=== PATIENT | female | born 1990 | race Caucasian/White ===

== ENCOUNTER 2017-11-09 14:59 | Outpatient (CLI) | payer MEDICAID ==
[2017-11-09 16:11] LABS: APPEARANCE,URINE SLIGHTLY-CLOUDY; BILIRUBIN,URINE SMALL (NEGATIVE); COLOR,URINE AMBER; GLUCOSE, URINE NEGATIVE (NEGATIVE); KETONES,URINE NEGATIVE (NEGATIVE); LEUKOCYTE ESTERASE,URINE NEGATIVE (NEGATIVE); NITRITE,URINE NEGATIVE (NEGATIVE); PROTEIN,URINE 30 mg/dL (NEGATIVE); URINE SPECIFIC GRAVITY 1.024
[2017-11-09 16:14] LABS: URINE AMPHETAMINES SCREEN NEGATIVE; URINE BARBITURATES SCREEN NEGATIVE; URINE BENZODIAZEPINES SCREEN NEGATIVE; URINE COCAINE SCREEN NEGATIVE; URINE MARIJUANA (THC) SCREEN NEGATIVE; URINE METHADONE SCREEN NEGATIVE; URINE PHENCYCLIDINE SCREEN NEGATIVE
== END 2017-11-09 17:13 | disposition home or self-care (01) ==
LOC: LC 14:59
PROVIDERS: ATTEND Student in an Organized Health Care Education/Training Program
PROC: 4A1HXCZ Monitoring of Products of Conception, Cardiac Rate, External Approach (ICD-10-PCS; principal; 2017-11-09)
DX: Z34.93 Encounter for supervision of normal pregnancy, unspecified, third trimester (principal); Z36.89 Encounter for other specified antenatal screening; Z3A.34 34 weeks gestation of pregnancy
CPT/HCPCS: 59025; 80307; 81001

== ENCOUNTER 2017-11-26 19:30 | Outpatient (CLI) | payer MEDICAID ==
[2017-11-26 20:13] LABS: APPEARANCE,URINE SLIGHTLY-CLOUDY; BILIRUBIN,URINE NEGATIVE (NEGATIVE); COLOR,URINE YELLOW; GLUCOSE, URINE NEGATIVE (NEGATIVE); KETONES,URINE NEGATIVE (NEGATIVE); LEUKOCYTE ESTERASE,URINE MODERATE (NEGATIVE); NITRITE,URINE NEGATIVE (NEGATIVE); PROTEIN,URINE NEGATIVE (NEGATIVE); URINE SPECIFIC GRAVITY 1.012; UROBILINOGEN,URINE NEGATIVE mg/dL (<2.0)
[2017-11-26 20:29] LABS: URINE AMPHETAMINES SCREEN NEGATIVE; URINE BARBITURATES SCREEN NEGATIVE; URINE BENZODIAZEPINES SCREEN NEGATIVE; URINE COCAINE SCREEN NEGATIVE; URINE MARIJUANA (THC) SCREEN NEGATIVE; URINE METHADONE SCREEN NEGATIVE; URINE PHENCYCLIDINE SCREEN NEGATIVE
== END 2017-11-26 21:13 | disposition home or self-care (01) ==
LOC: LC 19:30
PROVIDERS: ATTEND Obstetrics & Gynecology Gynecology
PROC: 4A1HXCZ Monitoring of Products of Conception, Cardiac Rate, External Approach (ICD-10-PCS; principal; 2017-11-26)
DX: O26.893 Other specified pregnancy related conditions, third trimester (principal); R10.9 Unspecified abdominal pain; Z3A.37 37 weeks gestation of pregnancy
CPT/HCPCS: 59025; 80307; 81005

== ENCOUNTER 2017-12-10 05:03 | Inpatient (IN) | payer MEDICAID ==
[2017-12-09 12:23] LABS: ABSOLUTE EOSINOPHILS # (AUTO) 0.2 10^3/uL (0.0-0.6); ABSOLUTE MONOCYTES (AUTO) 0.4 10^3/uL (0.1-1.4); ABSOLUTE NEUT (AUTO) 8.5 10^3/uL (1.7-8.2); BASOPHILS % (AUTO) 0.4 % (0-2); EOSINOPHILS % (AUTO) 1.4 % (0-6); HEMATOCRIT 33.8 % (36.0-47.0); HEMOGLOBIN 10.9 g/dL (12.0-15.5); LYMPHOCYTES % (AUTO) 18.1 % (13-45); MEAN CORPUSCULAR HEMOGLOBIN 25.4 pg (27.0-33.4); MEAN CORPUSCULAR HGB CONC 32.3 g/dL (32.0-36.0); MEAN CORPUSCULAR VOLUME 79 fl (80-97); MONOCYTES % (AUTO) 3.7 % (3-13); PLATELET COUNT 301 10^3/uL (150-450); RED CELL DISTRIBUTION WIDTH 17.8 % (11.5-14.0); SEGMENTED NEUTROPHILS % (AUTO) 76.4 % (42-78); TOTAL CELLS COUNTED % (AUTO) 100 %; WHITE BLOOD COUNT 11.1 10^3/uL (4.0-10.5)
[2017-12-09 12:26] LABS: APPEARANCE,URINE CLOUDY; BILIRUBIN,URINE NEGATIVE (NEGATIVE); COLOR,URINE YELLOW; GLUCOSE, URINE NEGATIVE (NEGATIVE); KETONES,URINE NEGATIVE (NEGATIVE); LEUKOCYTE ESTERASE,URINE LARGE (NEGATIVE); NITRITE,URINE NEGATIVE (NEGATIVE); PROTEIN,URINE 30 mg/dL (NEGATIVE); URIC ACID CRYSTALS,URINE FEW /HPF; URINE SPECIFIC GRAVITY 1.029
[2017-12-09 12:53] LABS: URINE AMPHETAMINES SCREEN NEGATIVE; URINE BARBITURATES SCREEN NEGATIVE; URINE BENZODIAZEPINES SCREEN NEGATIVE; URINE COCAINE SCREEN NEGATIVE; URINE MARIJUANA (THC) SCREEN NEGATIVE; URINE METHADONE SCREEN NEGATIVE; URINE PHENCYCLIDINE SCREEN NEGATIVE
[~2017-12-10 05:03] MED LIST: CEFAZOLIN 2 GM/D5W RTU 2 GM/50 ML RTUPB IV PRN; LACTATED RINGERS 1000 ML IV PRN; LIDOCAINE 0.5% INJ-PF (5 MG/ML) 50 ML SDV SUBCUT PRN; RINGERS SOLUTION,LACTATED 1,000 ML IV ONE
[2017-12-10] MEDS ORDERED: OXYTOCIN 10 UNIT/ML VIAL ONE (06:46)
[2017-12-10] MEDS ORDERED: MIDAZOLAM 2 MG/2 ML INJ ONE (06:47)
[2017-12-10] MEDS ORDERED: FENTANYL CITRATE INJ/PF 100 MCG/2 ML AMPUL ONE (06:47)
[2017-12-10] MEDS ORDERED: EPINEPHRINE INJ/PF 1 MG/1 ML AMPULE ONE (06:47)
[2017-12-10] MEDS ORDERED: EPHEDRINE SULFATE INJ 50 MG/1 ML AMPULE ONE (06:47)
[2017-12-10] MEDS ORDERED: ONDANSETRON HCL INJ/PF 4 MG/2 ML SDV ONE ×2 (06:48→09:21)
[2017-12-10] MEDS ORDERED: OXYTOCIN/NORMAL SALINE 20 UNIT/1,000 ML RTUINJ ONE ×2 (06:48→09:36)
[2017-12-10] MEDS ORDERED: NALBUPHINE HCL INJ 10 MG/1 ML AMPULE ONE (08:06)
[2017-12-10] MEDS ORDERED: ONDANSETRON HCL INJ/PF 4 MG/2 ML SDV IV PRN (08:21)
[2017-12-10] MEDS ORDERED: DIPHENHYDRAMINE HCL 50 MG/ML VIAL IV PRN (08:21)
[2017-12-10] MEDS ORDERED: PROMETHAZINE HCL INJ 25 MG/1 ML VIAL IV PRN ×2 (08:21→09:20)
[2017-12-10] MEDS ORDERED: MEPERIDINE HCL/PF INJ 25 MG/1 ML DISP.SYRIN IV PRN (08:21)
[2017-12-10] MEDS ORDERED: MORPHINE SULFATE 10 MG/ML INJ IV PRN (08:21)
[2017-12-10] MEDS ORDERED: FENTANYL CITRATE INJ/PF 100 MCG/2 ML AMPUL IV PRN ×3 (08:21)
--- NOTE | 2017-12-10 09:03 | Non Stress Test Report ---
Non Stress Test Datetime Report Generated by CPN: 12/10/2017 09:03 DEMOGRAPHIC Test Number: 2 EGA NST: 37.0 EGA NST: 34.4 INDICATION Indication for Study: Ordered by Provider Indication for Study: Ordered by Provider MONITORING Monitor Explained: Monitor Explained; Test Explained; Patient Verbalized Understanding Monitor Explained: Monitor Explained; Test Explained; Patient Verbalized Understanding Time on Monitor: 11/26/2017 19:43 Time on Monitor: 11/09/2017 15:21 Time off Monitor: 11/26/2017 21:02 Time off Monitor: 11/09/2017 16:01 NST Duration: 79 NST Duration: 40 NST INTERVENTIONS NST Interventions: PO Hydration; Reposition Patient NST Interventions: PO Hydration; Reposition Patient Physician Notified NST: Dr. Metcalf Physician Notified NST: Dr. Woods BABY A: [id number] BABY A Movement : Present Movement : Present Contraction Frequency : irregular Contraction Frequency : 0 FHR Baseline : 145 FHR Baseline : 145 Accelerations : 15X15 Accelerations : 15X15 Decelerations : None Decelerations : None Variability : Moderate 6-25bpm Variability : Moderate 6-25bpm NST Review: Meets Criteria for Reactive NST NST Review: Meets Criteria for Reactive NST NST Review and Verified By : Casey Baldwin RN NST Review and Verified By : Aiyana Mc RN NST Results: Reactive NST Results: Reactive NST REPORT Report Trigger: Send Report
--- NOTE | 2017-12-10 09:07 | PDOC DELIVERY SUMMARY ---
Delivery Summary - Maternal Hx : II Hx Para: I Hx # Term Pregnancies: 1 Hx # Pregnancies: 0 Hx Total # of Abortions (Sponateous & Elective): 0 Number of Living Children: 1 ANN-MARIE: 12/17/17 Gestational Age: 39 Risk Factors: Previous Ruptured Membranes: AROM Time of Rupture: 08:04 Fluids: Clear - Delivery Labor: Not In Labor Presentation: Vertex Heart Rate Monitoring: Done Pre-Operatively Uterine Contraction Monitoring: External Support Person Present: Reza - CARMELINA SAMSON Location: OR : Scheduled Placenta: Within Normal Limits Number of Vessels (Cord): 3 Nuchal Cord: No Delivery of Placenta Date: 12/10/17 Delivery of Placenta Time: 08:06 - Medications Type of Anesthesia:: Spinal - Infant Assess and Care Baby 1 Male Delivery of Infant Date: 12/10/17 Delivery of Time: 08:04 at 1 minute: 8 at 5 minutes: 9 Preprinted Number On Band: [id number] Skin to Skin: No To Nursery At: 08:12 Mode of Transport: Bassinet Infant Delivery Weight: 3,645 Delivery Length: 20 in - Delivery Personnel Environmental Field Professional: SHAHRAM MILLER Nurseshabbir RN: MANAS PAIGE MD: JOSE GUTIÉRREZ
[2017-12-10] MEDS ORDERED: SIMETHICONE 80 MG TAB.CHEW PO PRN (09:20)
[2017-12-10] MEDS ORDERED: MEASLES,MUMPS&RUBELLA VACC/PF 0.5 ML VIAL SUBCUT PRN (09:20)
[2017-12-10] MEDS ORDERED: HYDROMORPHONE HCL INJ/PF 2 MG/ML AMPULE IV PRN (09:20)
[2017-12-10] MEDS ORDERED: OXYTOCIN/NORMAL SALINE 20 UNIT/1,000 ML RTUINJ IV PRN (09:20)
[2017-12-10] MEDS ORDERED: DIPH/PERTUSS(ACELL)/TETANUS VAC/PF 0.5 ML SYR (>=10YO) IM PRN (09:20)
[2017-12-10] MEDS ORDERED: ACETAMINOPHEN 325 MG TABLET PO PRN (09:20)
[2017-12-10] MEDS ORDERED: ACETAMINOPHEN 100 ML IV PRN (09:20)
--- NOTE | 2017-12-10 09:20 | Brief Operative Note ---
BRIEF OPERATIVE REPORT DATE OF SURGERY: 12/10/17 TIME OF SURGERY: 09:00 PREOPERATIVE DIAGNOSIS: History of C/S, 39+0, Desires Repeat C/S POSTOPERATIVE DIAGNOSIS: EFREN - Delivered SURGEON: JOSE GUTIÉRREZ FINDINGS: normal uterus except for very thin uterine segment, no uterine window , bilateral tubes and ovaries normal, VMI delivered 0804, weight 8#1oz, Apgars 8 /9. UOP 125ml, IVF 1600ml COMPLICATIONS: None ESTIMATED BLOOD LOSS: 700ml TISSUE REMOVED OR ALTERED: placenta and cord - not sent for pathology TECHNICAL PROCEDURE: Scar Revision, Repeat section
[2017-12-10] MEDS ORDERED: ACETAMINOPHEN WITH CODEINE #3 TABLET PO PRN (09:23)
[2017-12-10] MEDS ORDERED: ACETAMINOPHEN 100 ML IV ONE (09:55)
[2017-12-10] MEDS ORDERED: KETOROLAC TROMETHAMINE INJ/PF 30 MG/1 ML SDV ONE (09:55)
[2017-12-10] MEDS: KETOROLAC TROMETHAMINE INJ/PF 30 MG/1 ML SDV IV SCH ×2 (10:03→18:43)
[2017-12-10] MEDS: PRENATAL VITAMIN W DHA CAPSULE PO SCH (10:05)
[2017-12-10] MEDS: DOCUSATE SODIUM 100 MG CAPSULE PO SCH ×2 (10:05→18:44)
[2017-12-10] MEDS: ACETAMINOPHEN WITH CODEINE #3 TABLET PO PRN ×3 (12:43→23:02)
--- NOTE | 2017-12-10 19:15 | Operative Report ---
Operative Report DATE OF SURGERY: 12/10/17 PREOPERATIVE DIAGNOSIS: History of C/S, 39+0, Desires Repeat C/S POSTOPERATIVE DIAGNOSIS: EFREN - Delivered OPERATION: Scar Revision, Repeat section SURGEON: JOSE GUTIÉRREZ ANESTHESIA: Spinal TISSUE REMOVED OR ALTERED: placenta and cord - not sent for pathology COMPLICATIONS: None ESTIMATED BLOOD LOSS: 700ml INTRAOPERATIVE FINDINGS: normal uterus except for very thin uterine segment, no uterine window, bilateral tubes and ovaries normal, VMI delivered 0804, weight 8 #1oz, Apgars 8/9. UOP 125ml, IVF 1600ml PROCEDURE: Anesthesia provider: [Wyatt] Estimated blood loss: [700ml] Urine output: [125ml] IV fluids: [1600ml] Indications: [27yo at 39+0ega presents for scheduled repeat section. She has a prior history of section and declines . She desires RELTCS. She does not desire contraception and desires to use condoms only. The risks, benefits, alternatives were reviewed with the patient and she desires to proceed with the planned procedure.] Procedure: The patient was taken to the operating room where spinal anesthesia was obtained and found to be adequate. She was then prepped and draped in the normal sterile fashion and placed in the dorsal supine position with a leftward tilt. A Pfannenstiel skin incision was then made and carried through to the underlying layers of the fascia with the scalpel. The fascia was incised in the midline and the incision extended laterally with the Salas scissors. The superior aspect of the fascial incision was then grasped with Dylon clamps elevated and the underlying rectus muscles dissected off [bluntly]. Attention was then turned to the inferior aspect of the fascial incision which in a similar fashion was grasped, tented up with Alma clamps, and the rectus muscles dissected off [bluntly]. The rectus muscles were then in the midline and the peritoneum at the amount identified and entered [bluntly]. The peritoneal incision was then extended superiorly and inferiorly with good visualization of the bladder. The bladder blade was inserted and the vesicouterine peritoneum identified grasped with Japanese pickups and entered sharply with the Metzenbaum scissors. This incision was then extended laterally with the Metzenbaum scissors and a bladder flap created digitally. The bladder blade was then reinserted and the lower uterine segment incised in a transverse fashion with the scalpel. The uterine incision was then extended bluntly. The bladder blade was removed and the infant's head was delivered from cephalic presentation atraumatically. The nose and mouth were suctioned and the cord doubly clamped and cut. And the infant was handed off to waiting pediatricians. The placenta was then delivered spontaneously and the uterus exteriorized and cleared of all clots and debris. The uterine incision was then repaired with 1- 0 Vicryl in a running locked fashion. A second layer of the same suture was used to obtain hemostasis via imbrication of the initial layer. The bladder flap was then repaired with 3-0 chromic in a running fashion. The uterus was returned to the patient's abdomen and Interceed was placed overlying the uterine incision to prevent adhesions. The gutters were cleared of all clots and debris. All operative sites were noted to be hemostatic. The fascia was reapproximated with 0 Vicryl in a running fashion from each lateral edge to the midline. The skin was closed with 3-0 Monocryl in a running subcuticular fashion with overlying Dermabond for additional dressing as well as wound closure. The patient tolerated the procedure well. Sponge lap needle and instrument counts are correct times two. 2 g of Ancef were given prior to skin incision. The patient was taken to the recovery area awake and in stable condition.
[2017-12-11] MEDS: KETOROLAC TROMETHAMINE INJ/PF 30 MG/1 ML SDV IV SCH (01:56)
[2017-12-11] MEDS: IBUPROFEN 800 MG TABLET PO SCH ×2 (05:42→12:25)
[2017-12-11 07:04] LABS: MEAN CORPUSCULAR HEMOGLOBIN 25.6 pg (27.0-33.4); MEAN CORPUSCULAR HGB CONC 32.4 g/dL (32.0-36.0); MEAN CORPUSCULAR VOLUME 79 fl (80-97); PLATELET COUNT 265 10^3/uL (150-450); RED BLOOD COUNT 3.93 10^6/uL (3.72-5.28); WHITE BLOOD COUNT 11.7 10^3/uL (4.0-10.5)
[2017-12-11] MEDS: DOCUSATE SODIUM 100 MG CAPSULE PO SCH (09:27)
[2017-12-11] MEDS: PRENATAL VITAMIN W DHA CAPSULE PO SCH (09:28)
--- NOTE | 2017-12-11 11:53 | PDOC DISCHARGE SUMMARY ---
Final Diagnosis Discharge Date: 12/11/17 - desires early discharge, weather anchor notified will wait for pm labs - Final Diagnosis (1) Status post repeat low transverse section Is this a current diagnosis for this admission?: Yes Discharge Data - Discharge Medication Prescriptions: Acetaminophen with Codeine [Tylenol #3 Tablet] 1 each PO Q4HP PRN #20 tablet PRN Reason: Ibuprofen [Motrin 800 mg Tablet] 800 mg PO Q8HP PRN #60 tablet PRN Reason: Docusate Sodium [Colace 100 mg Capsule] 100 mg PO BID #60 capsule Ferrous Sulfate [Feosol 325 mg Tablet] 325 mg PO BID #60 tablet Home Medications: Vit/Iron Fumarate/FA [ Plus Tablet] 1 each PO DAILY 09/25/13 Ranitidine HCl [Zantac] 150 mg PO DAILY 11/26/17 Acetaminophen with Codeine [Tylenol #3 Tablet] 1 each PO Q4HP PRN #20 tablet 11/27 Docusate Sodium [Colace 100 mg Capsule] 100 mg PO BID #60 capsule 12/11/17 Ferrous Sulfate [Feosol 325 mg Tablet] 325 mg PO BID #60 tablet 12/11/17 Ibuprofen [Motrin 800 mg Tablet] 800 mg PO Q8HP PRN #60 tablet 12/11/17 Reason(s) for Admission: Ceasarean Section-Repeat Procedures: Ultrasound Intrapartum Procedure(s): : Low Cervical, Transverse - Diagnosis Test Laboratory: Temp Pulse Resp BP Pulse Ox 97.5 F 69 17 131/76 H 99 12/11/17 08:29 12/11/17 08:29 12/11/17 08:29 12/11/17 08:29 12/11/17 08:29 12/09/17 12/09/17 12/11/17 11:25 11:30 06:38 RBC 4.30 3.93 Hgb 10.9 L 10.0 L Hct 33.8 L 31.0 L Urine Opiates Screen NEGATIVE - Discharge information/Instructions Discharge Activity: Activity As Tolerated, Balance Activity w/Rest, No Driving, No Lifting Over 10 Pounds, No Lifting/Push/Pulling, Pelvic Rest, No tub bath, Walk Frequently Discharge Diet: Regular Disposition: HOME, SELF-CARE Follow up with: [facility] in: 1, Weeks
[2017-12-11 17:18] VITALS: BP 128/81
== END 2017-12-11 18:52 | disposition home or self-care (01) | DRG 766 ==
LOC: 2S 05:03
PROVIDERS: ADMIT Student in an Organized Health Care Education/Training Program; ATTEND Student in an Organized Health Care Education/Training Program
PROC: 4A1HXCZ Monitoring of Products of Conception, Cardiac Rate, External Approach (ICD-10-PCS; 2017-12-10)
PROC: 10D00Z1 Extraction of Products of Conception, Low, Open Approach (ICD-10-PCS; principal; 2017-12-10 07:45)
DX: O34.211 Maternal care for low transverse scar from previous cesarean delivery (principal); Z82.49 Family history of ischemic heart disease and other diseases of the circulatory system; Z82.5 Family history of asthma and other chronic lower respiratory diseases; Z83.3 Family history of diabetes mellitus
CPT/HCPCS: 1961; 36415; 59025; 80307; 81001; 85025; 85027; 86850; 86900; 86901; 94799; C1765; J0131; J0171; J1885; J2250; J2300; J2405; J2590; J3010; J3490; J7120